=== PATIENT | male | born 1980 | race Caucasian/White ===

== ENCOUNTER 2023-09-23 22:35 | Emergency (ER) | payer BC ==
[~2023-09-23] VITALS: Ht 177.8 cm; Wt 86.2 kg
[2023-09-23 23:26] VITALS: BP 136/82; TEMP 98.5; O2SAT 96
== END 2023-09-23 23:55 | disposition home or self-care (01) ==
LOC: ER 22:39
DX: R04.0 Epistaxis (principal)